=== PATIENT | female | born 1960 | race Caucasian/White ===

== ENCOUNTER → 2017-06-08 | Outpatient (CLI) | payer MEDICARE, MEDICAID ==
--- NOTE | 2017-06-09 13:53 | RADIOLOGY REPORT (SQ) ---
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 TECHNIQUE: Blood glucose level was verified. Above dose of FDG was injected intravenously. 2-D seg mented attenuation correction images were obtained from the base of the skull to the midthighs. Nonc ontrast CT images were obtained for attenuation correction and fusion with emission images. CT image s were performed without oral or intravenous contrast and are not sensitive for parenchymal lesions. A series of overlapping emission PET images were obtained. Images reviewed and manipulated at [facility] work station by the radiologist. Images stored on PACS. LIMITATIONS: None. FINDINGS: HEAD AND NECK: No areas of abnormal metabolic activity in the soft tissues of the head and neck. CHEST: A new left 2 x 1.5 cm spiculated right upper lobe mass is present just superior to the minor f issure on axial image 86. This has SUV of 8.4, and is worrisome for neoplasm. This is new compared to prior PET-CT 04/28/2016 There is minimal airspace disease in the medial aspect right middle lobe, bandlike in appearance, pos sibly minimal pneumonia. This has SUV of 3.2 and is new compared to previous PET-CT. On axial image 70, a pretracheal lymph node is present 2.2 x 1.3 cm in size with SUV of 5 (was non me tabolic, 1.7 x 0.8 cm on 04/18/2016). On axial image 76, a 1.3 x 0.7 cm precarinal lymph node is present with SUV 3.8 (was non metabolic, 0 .8 x 0.4 cm in size on 04/18/2016). The 8 sub- carinal lymph node is present 2.4 x 1.1 cm in size with SUV 4.1 on axial image 83 (was non metabolic, 2.1 x 1.1 cm in size 04/18/2016). Old midline sternotomy and surgical clips in the anterior mediastinum. No metabolically active anter ior mediastinal lesions. Stable staple line in the right lower lobe with bandlike scarring, non metabolic. Stable thin rim of pleural fluid and pleural thickening in the right posterior costophrenic sulcus, S UV 2.3 (was SUV 2.5 on 04/28/2016). There is stable left apical volume loss consolidation and bronchiectasis, unchanged from 04/28/2016. Minimal metabolic activity in the lung parenchyma today, with SUV 2.1 likely indicating postinflamma tory change (was SUV 3.1 on 04/18/2016). ABDOMEN AND PELVIS: There is diffuse colonic activity, SUV 8 to 9, question diffuse colitis from infl ammatory bowel disease or infection. PROXIMAL LOWER EXTREMITIES: No areas of abnormal metabolic activity in the soft tissues of the lower extremities. BONES: No abnormal metabolic activity in the visualized skeleton. ADDITIONAL CT FINDINGS: Right central line will tip superior vena cava. Left vocal cord paralysis. Diffuse pericardial thickening OTHER: Liver background SUV 2.7. Blood pool background SUV 1.5 IMPRESSION: New 2 x 1.5 cm spiculated right upper lobe mass adjacent to the minor fissure, worrisome for malignancy New airspace disease in the medial aspect right middle lobe, atelectasis versus pneumonia Slight increase in size, definite increase in metabolic activity of mediastinal lymph nodes as above Diffuse colonic increased metabolic activity worrisome for colitis TECHNICAL DOCUMENTATION: JOB ID: [id number] [employer]- All Rights Reserved
== END ==
LOC: RAD 17:28
PROVIDERS: ATTEND Internal Medicine Medical Oncology
DX: C34.91 Malignant neoplasm of unspecified part of right bronchus or lung (principal)
CPT/HCPCS: 78815; A9552

== ENCOUNTER 2017-06-16 09:06 | Day surgery (SDC) | payer MEDICARE, MEDICAID ==
[2017-06-16 09:40] VITALS: BP 167/101
[2017-06-16 09:50] LABS: HEMATOCRIT 40.2 % (36.0-47.0); HEMOGLOBIN 13.3 g/dL (12.0-15.5); HGB HCT DIFFERENCE -0.3; MEAN CORPUSCULAR HEMOGLOBIN 27.4 pg (27.0-33.4); MEAN CORPUSCULAR HGB CONC 33.2 g/dL (32.0-36.0); MEAN CORPUSCULAR VOLUME 83 fl (80-97); RED BLOOD COUNT 4.88 10^6/uL (3.72-5.28); RED CELL DISTRIBUTION WIDTH 14.5 % (11.5-14.0); WHITE BLOOD COUNT 5.5 10^3/uL (4.0-10.5)
[2017-06-16 09:57] LABS: PROTHROMBIN TIME 13.4 SEC (11.4-15.4)
[2017-06-16 09:58] LABS: PARTIAL THROMBOPLASTIN TIME 28.1 SEC (23.5-35.8)
[2017-06-16 10:01] LABS: BLOOD UREA NITROGEN 11 mg/dL (7-20); CREATININE RESULT 0.75 mg/dL (0.52-1.25); GLUCOSE 96 mg/dL (75-110)
[2017-06-16] MEDS ORDERED: FENTANYL CITRATE INJ/PF 100 MCG/2 ML AMPUL ONE (12:04)
[2017-06-16] MEDS ORDERED: MIDAZOLAM 2 MG/2 ML INJ ONE (12:04)
--- NOTE | 2017-06-16 16:12 | RADIOLOGY REPORT (SQ) ---
EXAM DESCRIPTION: CT CHEST WITHOUT COMPLETED DATE/TIME: 06/16/2017 1:54 pm REASON FOR STUDY: MALIGNANT NEOPLASM OF UNSPECIFIED PART OF RIGHT BRONCHUS OR LUNG COMPARISON: None. TECHNIQUE: Limited noncontrast CT of the chest in preparation for CT-guided lung biopsy. LIMITATIONS: None. FINDINGS: Appropriate instrumentation not available for safe percutaneous biopsy. IMPRESSION: Patient will be rescheduled. TECHNICAL DOCUMENTATION: JOB ID: [id number]- All Rights Reserved
== END 2017-06-16 13:10 | disposition home or self-care (01) ==
LOC: RAD 09:06
PROVIDERS: ATTEND Internal Medicine Medical Oncology
PROC: 0BB Respiratory System, Excision (ICD-10-PCS; principal; 2017-06-16)
DX: C34.91 Malignant neoplasm of unspecified part of right bronchus or lung (principal); Z79.899 Other long term (current) drug therapy; Z79.01 Long term (current) use of anticoagulants
CPT/HCPCS: 36415; 71250; 82565; 82947; 84520; 85027; 85610; 85730; J2250; J3010

== ENCOUNTER 2017-07-01 06:10 | Day surgery (SDC) | payer MEDICARE, MEDICAID ==
[2017-07-01 07:22] LABS: ABSOLUTE BASOPHILS # (AUTO) 0.1 10^3/uL (0.0-0.2); ABSOLUTE EOSINOPHILS # (AUTO) 0.1 10^3/uL (0.0-0.6); ABSOLUTE LYMPHOCYTES (AUTO) 2.4 10^3/uL (0.5-4.7); ABSOLUTE MONOCYTES (AUTO) 0.7 10^3/uL (0.1-1.4); ABSOLUTE NEUT (AUTO) 4.1 10^3/uL (1.7-8.2); EOSINOPHILS % (AUTO) 1.7 % (0-6); HEMATOCRIT 41.2 % (36.0-47.0); HEMOGLOBIN 13.7 g/dL (12.0-15.5); HGB HCT DIFFERENCE -0.1; LYMPHOCYTES % (AUTO) 32.2 % (13-45); MEAN CORPUSCULAR HEMOGLOBIN 27.3 pg (27.0-33.4); MEAN CORPUSCULAR HGB CONC 33.2 g/dL (32.0-36.0); MEAN CORPUSCULAR VOLUME 82 fl (80-97); MONOCYTES % (AUTO) 8.9 % (3-13); RED BLOOD COUNT 5.01 10^6/uL (3.72-5.28); RED CELL DISTRIBUTION WIDTH 14.5 % (11.5-14.0); SEGMENTED NEUTROPHILS % (AUTO) 56.2 % (42-78); WHITE BLOOD COUNT 7.4 10^3/uL (4.0-10.5)
[2017-07-01 07:29] LABS: PROTHROMBIN TIME 12.8 SEC (11.4-15.4)
[2017-07-01 07:30] LABS: PARTIAL THROMBOPLASTIN TIME 30.8 SEC (23.5-35.8)
[2017-07-01 07:42] VITALS: BP 145/97
[2017-07-01 07:46] LABS: BLOOD UREA NITROGEN 9 mg/dL (7-20)
[2017-07-01] MEDS ORDERED: FENTANYL CITRATE INJ/PF 100 MCG/2 ML AMPUL ONE (09:19)
[2017-07-01] MEDS ORDERED: MIDAZOLAM 2 MG/2 ML INJ ONE (09:19)
--- NOTE | 2017-07-01 13:00 | RADIOLOGY REPORT (SQ) ---
EXAM DESCRIPTION: CT CHEST WITHOUT COMPLETED DATE/TIME: 07/01/2017 9:58 am REASON FOR STUDY: MALIGNANT NEOPLASM OF LUNG C34.91 MALIGNANT NEOPLASM OF UNSP PART OF RIGHT BRONCH US OR Z79.01 PENITENTIARY (CURRENT) USE OF ANTICOAGULANTS Z79.899 OTHER PENITENTIARY (CURRENT) DRUG THER APY COMPARISON: CT chest 06/16/2017, PET-CT 06/08/2017, 04/28/2016 TECHNIQUE: CT scan performed of the chest without intravenous contrast. Images reviewed with lung, soft tissue and bone windows. Reconstructed coronal and sagittal MPR images reviewed. All images st ored on PACS. All CT scanners at this facility use dose modulation, iterative reconstruction, and/or weight based d osing when appropriate to reduce radiation dose to as low as reasonably achievable (ALARA). [facility]: Dose Right [facility]: CareDose [facility]: Dose Right [facility]: Teradose 4D [facility]: [employer] RADIATION DOSE: CT Rad equipment meets quality standard of care and radiation dose reduction techniq ues were employed. CTDIvol: 20.2 - 20.3 mGy. DLP: 1349 mGy-cm. mGy. LIMITATIONS: No technical limitations. FINDINGS: CT was performed today, for biopsy planning of the hypermetabolic lesion in the right lung identified 06/08/2017. The lesion of concern is immediately adjacent to the right minor fissure, putting the patient at incr eased risk for pneumothorax. Patient also has changes of obstructive disease in the right upper lobe , old postsurgical changes with partial resection of the right lower lobe medially, and post therapeu tic change with volume loss in the left upper lobe, making her pulmonary reserve decreased. Because of the increased risk of pneumothorax given the close proximity of the lesion to the minor fi ssure, and because of the patient's decreased pulmonary reserve, procedure was canceled today. These findings were discussed with Dr. Lawrence. IMPRESSION: Right lung mass biopsy canceled. Attending physician notified TECHNICAL DOCUMENTATION: JOB ID: [id number] Quality ID # [id number]: Final reports with documentation of one or more dose reduction techniques (e.g., Au tomated exposure control, adjustment of the mA and/or kV according to patient size, use of iterative reconstruction technique) 2010 [employer]- All Rights Reserved
== END 2017-07-01 10:10 | disposition home or self-care (01) ==
LOC: RAD 06:10
PROVIDERS: ATTEND Internal Medicine Medical Oncology
DX: C34.91 Malignant neoplasm of unspecified part of right bronchus or lung (principal); Z53.9 Procedure and treatment not carried out, unspecified reason; J44.9 Chronic obstructive pulmonary disease, unspecified; E11.9 Type 2 diabetes mellitus without complications; Z79.01 Long term (current) use of anticoagulants; Z79.899 Other long term (current) drug therapy; Z87.891 Personal history of nicotine dependence
CPT/HCPCS: 36415; 71250; 82565; 82947; 84520; 85025; 85610; 85730; J2250; J3010